=== PATIENT | female | born 1950 | race Caucasian/White ===

== ENCOUNTER 2024-05-31 11:13 | Emergency (ER) | payer MEDICARE, MEDICAID, SELFPAY ==
[2024-05-31 11:15] VITALS: BP 145/76; PULSE 76; RESP 16; TEMP 36.7; O2SAT 96; BMI 30.4
--- NOTE | 2024-05-31 11:41 | CT_ITS ---
PROCEDURE: ABDOMEN/PELVIS W IV CONT ONLY 05/31/2024 REASON FOR EXAM: PELVIC PAIN TECHNIQUE: Abdomen and pelvis CT with intravenous contrast. Coronal and Sagittal reformats were provided. PATIENT PREPARATION: Per protocol ORAL CONTRAST TYPE: None. CONTRAST: Isovue-300 VOLUME: 97 mL One or more dose reduction techniques were used (e.g., Automated exposure control, adjustment of the mA and/or kV according to patient size, use of iterative reconstruction technique. RADIATION DOSE SUMMARY: CTDlvol: 16.62+ 24.18 mGy DLP: 1147.08 mGycm COMPARISON: None FINDINGS: Lung bases: Atelectasis/scarring. Small cyst in the LEFT lung base. 3 mm micronodule in the subpleural LEFT lung base. Irregular nodular opacities in the RIGHT lung base up to roughly 6 x 5 mm. Faintly nodular foci in the imaged RIGHT breast up to 1.4 cm. Liver: Unremarkable. Spleen: Unremarkable. Gallbladder: Unremarkable. Pancreas: Unremarkable. Adrenals: Unremarkable. Kidneys: Cysts and additional tiny hypodensities too small to characterize, likely cysts. Additional subcentimeter hypodensity on the RIGHT is also too small to characterize but subjectively contains macroscopic fat suggesting angiomyolipoma. Bowel: Diverticulosis. Likely appendectomy. Lymph nodes: Unremarkable. Vasculature: Atherosclerosis. IVC filter. Prominent collateral vessels which appear to arise from the portal vein in the region of the pancreatic head/uncinate process. Stenotic appearance of the proximal most SMV probably a related finding with presence of collaterals suggesting chronicity. Peritoneum: Unremarkable. Bladder: Borderline mild bladder wall thickening versus underdistention. Reproductive Organs: Hysterectomy. Neither ovaries is confidently identified with additional surgical clips, suspect oophorectomy. Prominent and tortuous collateral veins associated with the labia, [id number] with ill-defined soft tissue thickening along the labia and vagina. Body Wall: Small fat containing umbilical hernia superimposed on rectus diastasis.. Bones: Demineralization. Mild compression deformities of L4 and L1 without specific evidence of acuity. Mild spondylosis. Thoracolumbar levoscoliosis. ORIF RIGHT femoral neck. Subchondral sclerosis in the posteromedial RIGHT femoral head could be degenerative or reflect early avascular necrosis. Densely sclerotic presumed bone island in the LEFT iliac bone in the absence of known malignancy. CT/Abdomen/Pelvis W IV Cont ONLY IMPRESSION: 1. Prominent and tortuous collateral veins associated with the bilateral labia with ill-defined soft tissue thickening along the labia and vagina. Given the presence of an IVC filter, the collateral vessels could conceivably be related to collateralization from previous DVT. Given the context as well as ill-defined soft tissue thicke sal, correlate with exam to exclude underlying lesion. 2. Borderline mild bladder wall thickening versus underdistention. Correlate fo r mild cystitis. 3. Recommend outpatient mammographic evaluation of RIGHT breast findings incomp letely characterized by CT. 4. Sub 6 mm average axial diameter nodules in the bilateral lung bases, statist ically benign and requiring no specific follow-up in a low risk patient. Otherwise, recommend follow-up CT chest in one year per the Fleischner society recommendations for pulmonary nodule follow-up, presuming no history of malignancy or known immunos uppression. 5. Additional description as above. Reading Location: [id number]
--- NOTE | 2024-05-31 11:43 | EDS_ITS ---
HPI HPI - GI History of Present Illness Chief Complaint: Abd Pain Informant: patient Limited: other (prior stroke and expressive aphasia) Abdominal Pain/Flank Pain Onset: Days Context: Gradual Onset Timing: Continuous Quality: Sharp Location: RLQ and - (right inguinal) Worsened by: - (urination) Relieved by: Nothing Nausea/Vomiting/Emesis GI Symptom: Negative for Nausea or Vomiting Diarrhea/Melena/Hematochezia GI Symptom: Negative for Diarrhea, Melena or Hematochezia Associated Symptoms Associated Symptoms: Positive for Hematuria; Negative for Dysuria or Frequency Narrative Narrative: Patient presents with right lower abdominal pain that has been getting worse over the past couple days. Patient admits to some hematuria. Patient states her pain is worse when she urinates. Patient describes her pain as sharp. Patient states nothing makes it worse and nothing makes it better. Patient denies any nausea or vomiting. Patient denies any diarrhea, melena, or hematochezia. Patient does admit to some urinary frequency. Patient denies any fevers or chills. 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, bilateral Pain in right hip Other symbolic dysfunctions Aphasia Need for assistance with personal care Constipation, unspecified Difficulty in walking, not elsewhere classified Muscle weakness (generalized) Unspecified premature depolarization Personal history of transient ischemic attack (TIA), and cerebral infarction without residual deficits Dorsopathy, unspecified Flaccid hemiplegia affecting right dominant side Tachycardia, unspecified Glossitis Other pulmonary embolism without acute cor pulmonale Home Medications ?Medication ?Instructions ?Recorded ?Last Taken ?Type cephalexin 500 mg capsule 500 mg PO Q12 #14 CAPSULES 0 05/31/24 Unknown Rx Allergy/AdvReac Type Severity Reaction Status Date / Time No Known Allergies Allergy Verified 05/31/24 11:15 Social History Smoking Status: Never smoker ROS ROS ED Constitutional Constitutional ED: Denies chills or fever(s) Eyes Eyes: Denies blurry vision or change in vision ENT ENT ED: Denies rhinorrhea or sore throat Cardiovascular Cardiovascular: Denies chest pain or palpitations Respiratory/Chest Respiratory/Chest: Denies cough or dyspnea Gastrointestinal Gastrointestinal: Reports abdominal pain; Denies nausea or vomiting Genitourinary Genitourinary ED: Reports hematuria; Denies dysuria Musculoskeletal Musculoskeletal: Denies back pain or neck pain Integumentary Denies abscess or rash Neurologic Neurologic: Denies headache(s) or weakness Allergic/Immunologic Allergic/Immunologic ED: Denies mouth swelling or urticaria EXAM Physical Exam Const Vital Signs: 05/31/24 11:15 05/31/24 13:13 05/31/24 15:00 Temperature 98.0 F Temperature Source Oral Pulse Rate 76 89 89 Respiratory Rate 16 18 18 Blood Pressure 145/76 H 144/63 H 140/60 H Blood Pressure Mean 99 90 86 Pulse Ox 96 98 98 Oxygen Delivery Method Room Air Room Air Room Air Positive well nourished and well developed Constitutional Narrative: BMI is 30.5 General Appearance ED: well developed and NAD HEENT Reports moist mucous membranes normocephalic and atraumatic Neck supple and no JVD Resp normal respiratory effort and clear to auscultation bilaterally Cardio regular rate and regular rhythm GI non-distended Palpation: soft and tender RLQ and suprapubic; Negative for guarding or rebound tenderness present Narrative: Pelvic exam did not show any bleeding. There is ecchymotic areas on the labia. There is mild tenderness over the right labia majora and right inguinal area. There are no masses or hernias noted. There is no vaginal bleeding noted. Neuro CN's II-XII intact bilaterally, moves all extremities and no sensory deficits noted Sensorium / Orientation: alert Motor Exam: strength 5/5 throughout Psych mental status grossly normal MDM MDM MDM Narrative Medical decision making narrative: Differential diagnosis includes urinary tract infection, ureteral calculus, pyelonephritis, pelvic mass, uterine fibroid, inguinal hernia, and appendicitis. CBC will be obtained to assess for leukocytosis and anemia. Comprehensive metabolic profile will be obtained to assess for hepatic function, renal function, and electrolyte abnormality. Urinalysis will be obtained to assess for urinary tract infection or hematuria. CT scan of the abdomen and pelvis will be obtained to assess for ureteral calculus, pelvic mass, appendicitis, bowel obstruction, and perforation. Lab Data Attestation: I reviewed the patient's lab results. Lab results narrative: CBC was reviewed. There is a mild leukocytosis of 11.7. Hemoglobin was slightly elevated at 15.1. The remainder is within normal limits. Comprehensive metabolic profile was reviewed. Glucose was 100. The remainder was within normal limits. Urinalysis was reviewed. Leukocyte esterase was 500. There are 10-25 red blood cells and 10-25 white blood cells. There are 5-10 epithelial cells. There is 2+ bacteria. Labs: Laboratory Results - last 24 hr 05/31/24 05/31/24 11:35 12:20 WBC 11.7 H RBC 4.88 Hgb 15.1 H Hct 45.3 MCV 92.8 MCH 30.9 MCHC 33.3 RDW Std Deviation 42.0 RDW Coeff of Mike 12.4 Plt Count 289 MPV 10.4 Immature Gran % (Auto) 0.300 Neut % (Auto) 73.6 H Lymph % (Auto) 20.3 Hickman % (Auto) 5.1 Eos % (Auto) 0.3 Baso % (Auto) 0.4 Absolute Neuts (auto) 8.6 H Absolute Lymphs (auto) 2.37 Nucleated RBC % 0 Sodium 140 Potassium 4.1 Chloride 104 Carbon Dioxide 21.1 Anion Gap 15 BUN 14 Creatinine 0.85 Estim Creat Clear Calc 61.82 Est GFR (MDRD) Non-Af 72 BUN/Creatinine Ratio 16.1 Glucose 100 H Calcium 10.0 Total Bilirubin 0.48 AST 24 ALT 16 Alkaline Phosphatase 105 H Total Protein 7.6 Albumin 4.5 Globulin 3.1 Albumin/Globulin Ratio 1.4 Urine Color Yellow Urine Clarity Cloudy Urine pH 5.0 Ur Specific [place] 1.020 Urine Protein 15 H Urine Glucose (UA) Normal Urine Ketones Negative Urine Occult Blood 150 H Urine Nitrite Negative Urine Bilirubin Negative Urine Urobilinogen Normal Ur Leukocyte Esterase 500 H Urine RBC 10-25 SEEN Urine WBC 10-25 SEEN Ur Squamous Epith Cells 5-10 SEEN Urine Bacteria 2+ Urine Mucus 1+ Radiography Diagnostic Testing: Clinical Impression(s) from Imaging Studies Abdomen/Pelvis CT 05/31/24 11:41 IMPRESSION: 1. Prominent and tortuous collateral veins associated with the bilateral labia with ill-defined soft tissue thickening along the labia and vagina. Given the presence of an IVC filter, the collateral vessels could conceivably be related to collateralization from previous DVT. Given the context as well as ill-defined soft tissue thickening, correlate with exam to exclude underlying lesion. 2. Borderline mild bladder wall thickening versus underdistention. Correlate for mild cystitis. 3. Recommend outpatient mammographic evaluation of RIGHT breast findings incompletely characterized by CT. 4. Sub 6 mm average axial diameter nodules in the bilateral lung bases, statistically benign and requiring no specific follow-up in a low risk patient. Otherwise, recommend follow-up CT chest in one year per the Fleischner society recommendations for pulmonary nodule follow-up, presuming no history of malignancy or known immunosuppression. 5. Additional description as above. Reading Location: [id number] CT scan of the abdomen and pelvis was obtained. There is prominent torturous collateral veins associated with bilateral labia and soft tissue thickening along the labia and vagina. This could be collateralization from prior DVT. There is mild bladder wall thickening. This was interpreted by the radiologist and was also independently reviewed by myself. Treatment and Re-Evaluation :: Patient was advised of her findings. Given her symptoms of dysuria, patient will be treated with Keflex for urinary tract infection. Urine culture was sent. Patient was advised of her findings. Patient was instructed to follow-up with her primary care physician in 5 to 7 days. Patient was also instructed to follow-up with [facility]. Patient was instructed to return if worse in any way. Patient understood and was agreeable with plan. All questions were answered. Discharge Plan Triage Chief Complaint: Abd Pain Other Complaint: Vag Bleeding ED Provider: Kamran Butterfield Dx/Rx/DC Orders Clinical Impression: Urinary tract infection, Female pelvic pain Instructions: ED Cystitis Female Adult Prescriptions: New cephalexin 500 mg capsule 500 mg PO Q12 Qty: 14 0RF Primary Care Provider: Care Physician,No Primary Referrals: Paola Kaur MD [Non-Staff] - 3-5 Days Print Language: Yakut Disposition Disposition: Home, Self Care
[2024-05-31] MEDS: 0.9% Normal Saline (1000mL) 1,000 ML 999 ML IV (11:56)
[2024-05-31] MEDS: Ondansetron 4 MG/2 ML Vial IV (11:57)
[2024-05-31] MEDS: Morphine 4 MG/ML Syringe IV ×2 (11:57→13:00)
[2024-05-31 12:05] LABS: Absolute Lymphocyte Count 2.37 X10^3/uL (0.83-4.51); Absolute Neutrophil Count 8.6 X10^3/uL (2.0-7.7); Basophil# 0.05 X10^3/uL; Basophil% 0.4 % (0-1); Eosinophil# 0.03 X10^3/uL; Eosinophils% 0.3 % (0-5); Hematocrit 45.3 % (37-47); Hemoglobin 15.1 g/dL (12.0-15.0); Lymphocyte # 2.37 X10^3/ul (0.83-4.51); Lymphocyte % 20.3 % (19-41); Mean Corp Hgb Conc 33.3 g/dL (32-36); Mean Corpuscular Hgb 30.9 pg (27.0-32.0); Mean Corpuscular Volume 92.8 fL (81-99); Mean Platelet Vol. 10.4 fl (6.2-12.0); Monocyte% 5.1 % (0-10); NRBC Flagged by Analyzer 0 % (0-5); Neutrophil % 73.6 % (47-70); Platelet Count 289 K/mm3 (150-450); RBC Distribution Width CV 12.4 % (11.6-14.6); Red Blood Count 4.88 M/mm3 (4.2-5.4); White Blood Count 11.7 K/mm3 (4.4-11.0)
[2024-05-31 12:29] LABS: ALB/GLOB Ratio 1.4 RATIO (0.9-2.4); AST(SGOT) 24 U/L (<=31); Alanine Aminotransfer ALT/SGPT 16 U/L (<=34); Albumin, Serum 4.5 g/dL (3.4-4.8); Alkaline Phosphatase 105 U/L (35-104); Anion Gap 15 (5-15); BUN 14 mg/dL (4-19); BUN/Creat Ratio 16.1 RATIO (10-20); Carbon Dioxide 21.1 mmol/L (21.0-32.0); Chloride 104 mmol/L (98-108); Creatinine, Serum 0.85 mg/dL (0.70-1.20); EST Glomerular Filtration Rate 72 (>60); Estimated Creatinine Clearance 61.82 ml/min (50-250); Globulin 3.1 g/dL (2.2-4.2); Glucose 100 mg/dL (70-99); Potassium 4.1 mmol/L (3.3-5.1); Protein, Total 7.6 g/dL (5.9-8.4); Sodium Level 140 mmol/L (133-145); Total Bilirubin 0.48 mg/dL (0.00-1.30)
[2024-05-31 12:35] LABS: Glucose, Dipstick Normal (Normal); Ketone-Dipstick Negative (Negative); Leukocyte Esterase-Dipstick 500 /ul (Negative); Nitrite-Dipstick Negative (Negative); Occult Blood-Urine 150 /ul (Negative); Protein-Dipstick 15 mg/dl (Negative); Urine Bilirubin Dipstick Negative (Negative); Urine Urobilinogen Normal (Normal)
[2024-05-31 12:37] LABS: Color, Urine Yellow (Yellow); Urine Clarity Cloudy (Clear)
[2024-05-31 13:13] VITALS: BP 144/63; PULSE 89; RESP 18; O2SAT 98
[2024-05-31 15:00] VITALS: BP 140/60; PULSE 89; RESP 18; O2SAT 98
[2024-05-31] MEDS: Morphine 2 MG/ML Syringe IV (15:16)
[2024-05-31 15:48] LABS: Bacteria 2+ /hpf (None Seen); Mucous, Urine 1+ /hpf (<or=2+); Red Blood Cells-Urine 10-25 SEEN /hpf (0-5); Squamous Epithelial Cells - UA 5-10 SEEN /hpf (5-10); White Blood Cells 10-25 SEEN /hpf (0-5)
[2024-05-31 17:00] VITALS: BP 139/64; PULSE 64; RESP 18; O2SAT 98
[2024-05-31] MEDS: Cephalexin 500 MG Capsule PO (17:37)
[2024-05-31 19:10] VITALS: BP 139/64; PULSE 64; RESP 18; TEMP 36.7; O2SAT 98
== END 2024-05-31 20:37 | disposition home or self-care (01) ==
PROVIDERS: Emergency Provider Emergency Medicine; Visit Provider Emergency Medicine
DX: N39.0 Urinary tract infection, site not specified (principal); R10.2 Pelvic and perineal pain
CPT/HCPCS: 74177; 80053; 81001; 85025; 87086; 87088; 96361; 96374; 96375; 96376; 99285; Q9967; A4216; J2405